=== PATIENT | female | born 1970 | race Caucasian/White ===

== ENCOUNTER → 2018-06-28 | Outpatient (CLI) | payer OTHER ==
[~2018-06-28] MED LIST: ESTRADIOL 1 MG T1 M1 PO; HYDROCODONE; IBUPROFEN 800800 M1 PO; MEDROLDOSEPACK PO; MOM; PERCOCET 10-321 EACH PO; PERCOCET 7.5-31 EACH PO; RELAFEN750 MG; TIZANIDINE PO; TRAMADOL 50 MG50 MG PO; VITAMIN B-12500 MCG PO; VITAMIN B-6100 MG PO; VITAMIN B12
== END ==
LOC: M.RAD 10:00
DX: Z12.31 Encounter for screening mammogram for malignant neoplasm of breast (principal)

== ENCOUNTER 2019-02-15 07:57 | Emergency (ER) | payer OTHER ==
[~2019-02-15] VITALS: Ht 167.6 cm; Wt 86.2 kg
[2019-02-15] MEDS ORDERED: NAPROSYN500 MG PO (08:48)
[2019-02-15] MEDS ORDERED: ACETAMINOPHEN-1 EAC1 PO (08:48)
[2019-02-15 08:53] VITALS: BP 150/62
== END 2019-02-15 08:54 | disposition home or self-care (01) ==
LOC: M.ERS 07:57
DX: S93.491A Sprain of other ligament of right ankle, initial encounter (principal); Z90.710 Acquired absence of both cervix and uterus; Z98.890 Other specified postprocedural states; Z88.6 Allergy status to analgesic agent; Z91.040 Latex allergy status; X50.1XXA Overexertion from prolonged static or awkward postures, initial encounter; Y93.89 Activity, other specified; Y92.89 Other specified places as the place of occurrence of the external cause; Y99.8 Other external cause status

== ENCOUNTER → 2019-10-24 | Outpatient (CLI) | payer OTHER ==
[~2019-10-24] MED LIST changes: +ACETAMINOPHEN-1 EAC1 PO; +NAPROSYN500 MG PO
== END ==
LOC: M.RAD 14:17
DX: Z12.31 Encounter for screening mammogram for malignant neoplasm of breast (principal)

== ENCOUNTER → 2020-04-13 | Day surgery (SDC) | payer OTHER ==
[~2020-04-13] MED LIST changes: +CELEXA 10 MG TA10 M1 PO; +NEURONTIN300 MG PO; +NORCO 5-325 TA1 EAC1 PO
--- NOTE | ~2020-04-13 | OP ---
[facility] [address] [place] [address] OPERATIVE REPORT Name: GEOVANNI PONCE Room: [facility]#: [id number] Admission: 04/13/20 Attend Phys: Sia Cleaning DO Discharge: Date of : 70 Report #: [id number] THIS REPORT FOR: //name// cc: Irena Quintero Maggie M. DO ~ THIS REPORT FOR: //name// CC: Sia Quintero DATE OF SERVICE: 04/13/2020 PREOPERATIVE DIAGNOSES: Left second metatarsophalangeal joint plantar plate tear and flexible hammertoe. POSTOPERATIVE DIAGNOSES: Left second metatarsophalangeal joint plantar plate tear and flexible hammertoe. PROCEDURE: 1. Left second MTP joint plantar plate repair. 2. Left second metatarsal Susie osteotomy. 3. Left second toe extensor tendon lengthening. 4. Intraoperative physician-guided fluoroscopy less than 1 hour. SURGEON: Sia Cleaning DO. CHANNELING MACHINE RUNNER: Carlos Eduardo Mcintyre DO. ANESTHESIA: General and 10 mL each of 1% lidocaine and 0.5% Marcaine. ESTIMATED BLOOD LOSS: 5 mL. SPECIMENS: None. DRAINS: None. COMPLICATIONS: None. CONDITION: Stable. DISPOSITION: PACU to home. ANTIBIOTICS: 2 grams Ancef IV preoperatively. TOURNIQUET TIME: Approximately 30 minutes at 250 mmHg. [facility] [address] [place] [address] OPERATIVE REPORT Name: GEOVANNI PONCE Room: [facility]#: [id number] Admission: 04/13/20 Attend Phys: Sia Cleaning DO Discharge: Date of : 70 Report #: [id number] IMPLANTS: Arthrex 1.3 mm twist-off screws x 2. INDICATIONS FOR PROCEDURE: The patient is a very pleasant 50-year-old female who has had ongoing left forefoot pain for the last several years. She has noticed an increasing medial deviation of the second toe and splaying between the second and third toes. She presented and clinically she had tenderness to palpation at the plantar aspect of the metatarsal head as well as pain with drawer testing. X-rays showed incongruity of the second MTP joint with medial deviation. She had failed conservative therapies including shoewear modifications, activity modifications, NSAIDs and despite these measures, continued to have significant left forefoot pain. Therefore, she did elect for left second MTP joint plantar plate repair and Susie shortening osteotomy and extensor tendon lengthening. The benefits, risks, complications, and alternatives of this procedure were discussed with the patient in detail. These include but are not limited to bleeding, surgical site infection, neurovascular compromise, malunion, nonunion, hardware failure, recurrent deformity, continued pain, need for further surgery, DVT, PE as well as the inherent risks of anesthesia. The patient understands these risks and is agreeable to proceed. Consent was signed in the preoperative holding area and on the chart at the time of surgery, operative site was marked. DESCRIPTION OF PROCEDURE: The patient was brought to the operating room and placed supine on the operating table. She was administered general anesthetic. A well-padded tourniquet was placed in proximal portion of the left thigh. Left lower extremity was then sterilely prepped with ChloraPrep and allowed to dry for 3 minutes. She was then draped freely in the usual fashion. A timeout was performed confirming correct patient, site and procedure. Surgical site markings were identified and all in the room were in agreement. Procedure began with exsanguination of the left lower extremity with an Esmarch and inflation of tourniquet to 250 mmHg. Next, a standard dorsal incision was made directly overlying the second MTP joint. This was carried through skin and subcutaneous tissues. Hemostasis was achieved with electrocautery. The extensor digitorum longus to the second toe was identified. This was then lengthened in Z-type fashion. Dorsal capsulotomy was made and the second MTP joint was exposed. McGlamry retractor was used to expose the metatarsal head. A small sagittal saw was then used to create a Susie osteotomy. The metatarsal head was then pushed proximally and held provisionally with a K-wire. We were then able to access the plantar aspect of the second MTP joint. She was noted to have a tear of the plantar plate on the lateral aspect. This tear was completed with a 15 blade. We then placed a second K-wire in the base of the proximal phalanx. A [facility] distractor was used to distract the joint. A scorpion was used to pass the FiberWire suture through the medial and lateral aspects of the plantar plate in a horizontal mattress fashion. We then utilized a K-wire and drilled tunnels in the base of the proximal phalanx, one medial and one lateral. The ends of the FiberWire were then retrieved and passed through these tunnels bringing them out the dorsal aspect [place] [address] OPERATIVE REPORT Name: GEOVANNI PONCE Room: [facility]#: [id number] Admission: 04/13/20 Attend Phys: Sia Cleaning, DO Discharge: Date of : 70 Report #: [id number] distractor was removed. We then removed the K-wire from the Susie osteotomy. This was then brought back out to its normal position, but shortened approximately 1-2 mm. We then placed two of the 1.3 mm twist-off screws across the osteotomy site. X-rays confirmed appropriate reduction of the second metatarsal and a congruent second MTP joint. At this time, we then holding the second toe in a plantar flexed position, the FiberWire sutures were tied over the top of the base of the proximal phalanx. The toe was noted to be resting still slightly medial and 0 Vicryl suture was used to imbricate the lateral capsule pulling it back to a more neutral position. The wound was then irrigated with saline. Subcutaneous tissue was closed with 3-0 Vicryl suture and skin reapproximated with 3-0 nylon. The toes were then taped together with Steri-Strips and wound was dressed with Xeroform, 4 x 4s, ABD, Kerlix, Cr bandage and a postoperative shoe will be applied in PACU. Tourniquet was let down at approximately 30 minutes, 20 mL of the mixture of local was injected around the toe and the incision prior to dressings being placed. The patient tolerated the procedure well without complications, transferred to PACU in stable condition. All needle and sponge counts were correct x 2 and I was present throughout all pertinent decision making aspects of the case. By: [id number] Cleaning DO /rian
== END | disposition home or self-care (01) ==
LOC: M.SUR 07:30
DX: S93.525A Sprain of metatarsophalangeal joint of left lesser toe(s), initial encounter (principal); M20.42 Other hammer toe(s) (acquired), left foot; Z98.890 Other specified postprocedural states; Z79.899 Other long term (current) drug therapy; X58.XXXA Exposure to other specified factors, initial encounter; Y93.89 Activity, other specified; Y92.89 Other specified places as the place of occurrence of the external cause; Y99.8 Other external cause status

== ENCOUNTER 2020-07-22 14:59 | Emergency (ER) | payer OTHER ==
[~2020-07-22] VITALS: Ht 167.6 cm; Wt 88.5 kg
[2020-07-22 16:05] LABS: ABSOLUTE MONOCYTES 0.8 thou/uL (0.0-1.2); ABSOLUTE NEUTROPHILS 10.6 thou/uL (1.6-8.1); BASOPHILS 0.2 %; EOSINOPHILS 0.3 %; HEMATOCRIT 38.8 % (37.0-47.0); LYMPHOCYTES 14.9 %; MCH 28.9 pg (26.0-34.0); MCHC 33.4 g/dL (28.0-37.0); MCV 86.6 fL (80.0-100.0); MONOCYTES 5.6 %; NUCLEATED RBCS 0 /100WBC; PLATELET COUNT* 402 thou/uL (150-400); RBC 4.48 mil/uL (4.20-5.00); RDW-CV 13.5 % (10.5-14.5); WBC 13.5 thou/uL (4.0-11.0)
[2020-07-22 16:19] LABS: CALCIUM 8.4 mg/dL (8.5-10.1); POTASSIUM 4.3 mmol/L (3.5-5.1)
[2020-07-22 16:24] LABS: ALBUMIN 3.2 g/dL (3.4-5.0); TOTAL BILIRUBIN 0.2 mg/dL (<0.1-1.0); TOTAL PROTEIN 7.6 g/dL (6.4-8.2)
[2020-07-22 17:08] LABS: ESR (SEDRATE) 6 mm/hr (0-30)
[2020-07-22] MEDS ORDERED: NYSTATIN 100,0015 G1 TOP (17:11)
[2020-07-22] MEDS ORDERED: DIFLUCAN150 M1 PO (17:11)
[2020-07-22] MEDS ORDERED: KEFLEX500 M1 PO (17:12)
[2020-07-22 17:30] VITALS: BP 139/63
== END 2020-07-22 17:30 | disposition home or self-care (01) ==
LOC: M.ERS 14:59
PROVIDERS: Nurse Practitioner Psychiatric/Mental Health
DX: L98.9 Disorder of the skin and subcutaneous tissue, unspecified (principal); Z88.6 Allergy status to analgesic agent; Z88.8 Allergy status to other drugs, medicaments and biological substances; Z90.710 Acquired absence of both cervix and uterus

== ENCOUNTER 2020-08-24 18:16 | Emergency (ER) | payer OTHER ==
[~2020-08-24] VITALS: Ht 167.6 cm; Wt 86.2 kg
[~2020-08-24 18:16] MED LIST changes: +DIFLUCAN150 M1 PO; +KEFLEX500 M1 PO; +NYSTATIN 100,0015 G1 TOP
[2020-08-24] MEDS ORDERED: IBUPROFEN 800800 M1 PO (19:25)
[2020-08-24] MEDS ORDERED: NORCO 5-325 TA1 EAC2 PO (19:25)
[2020-08-24 19:35] VITALS: BP 152/72
== END 2020-08-24 19:22 | disposition home or self-care (01) ==
LOC: M.ERS 18:16
DX: S61.204A Unspecified open wound of right ring finger without damage to nail, initial encounter (principal); Z90.710 Acquired absence of both cervix and uterus; Z88.6 Allergy status to analgesic agent; Z88.8 Allergy status to other drugs, medicaments and biological substances; W26.8XXA Contact with other sharp object(s), not elsewhere classified, initial encounter; Y93.89 Activity, other specified; Y92.89 Other specified places as the place of occurrence of the external cause; Y99.8 Other external cause status

== ENCOUNTER → 2020-11-13 | Outpatient (CLI) | payer OTHER ==
[~2020-11-13] MED LIST changes: +NORCO 5-325 TA1 EAC2 PO
== END ==
LOC: M.RAD 11-09 10:45
PROVIDERS: ATTEND Family Medicine
DX: Z12.31 Encounter for screening mammogram for malignant neoplasm of breast (principal)

== ENCOUNTER → 2020-11-19 | Outpatient (CLI) | payer OTHER | LOC: M.RAD 11-15 09:11 | PROVIDERS: ATTEND Family Medicine | DX: R92.8 Other abnormal and inconclusive findings on diagnostic imaging of breast (principal) ==

== ENCOUNTER → 2021-12-09 | Outpatient (CLI) | payer OTHER ==
[~2021-12-09] MED LIST changes: +CELEXA 20 MG TA20 MG PO; +MAGNESIUM250 M1 PO; +NEURONTIN 300M300 M2 PO; +TROKENDI XR200 MG PO; +UNICOMPLEX M TA1 TA1 PO; +VITAMIN B6100 MG/2.5 PO; +[UNRECOGNIZED DRUG - OTHER] PO
== END ==
LOC: M.RAD 10:55
PROVIDERS: ATTEND Family Medicine
DX: Z12.31 Encounter for screening mammogram for malignant neoplasm of breast (principal)